=== PATIENT | female | born 2005 | race Two or more races ===

== ENCOUNTER 2023-02-02 09:36 | Emergency (ER) | payer OTHER, SELFPAY ==
--- NOTE | ~2023-02-02 | US_ITS ---
EXAMINATION: US PELVIS CLINICAL INFORMATION: Hydrosalpinx COMPARISON: CT abdomen pelvis 02/02/2023: In both the left and right adnexal region, there are tubular fluid attenuation structures, raising concern of bilateral hydrosalpinx TECHNIQUE: Ultrasound of the pelvis is performed using both transabdominal and transvaginal transducers along with Doppler. Transvaginal imaging is performed due to inadequate visualization transabdominally. FINDINGS: Uterus: The uterus is anteverted and measures 9.1 x 4.5 x 5.1 cm. The double wall endometrial thickness could not be accurately measured as an IUD is in place. The uterus is smooth in contour and has normal myometrial echogenicity. No visible fibroid. Adnexa: Both ovaries are visualized. There is normal color flow to the adnexa. There is no ovarian torsion. There is no pelvic ascites or fluid collection. Right ovary measures 3.6 x 2.8 x 2.2 cm for a volume of 11.6 mL. Left ovary measures 4.2 x 2.2 x 2.8 cm for a volume of 13.5 mL which includes a 1.8 x 1.8 x 1.7 cm corpus luteal cyst. No definite corresponding abnormality is seen to correspond with the findings on the CT scan. However, I believe that the hypoechoic structures may have just merely been the ovaries. US/US pelvic and transvaginal IMPRESSION: 1. IUD in place. 2. No pathologic abnormality is seen to correspond with the findings on the CT scan. However, I believe that the findings on the CT scan may have just merely been the ovaries.
--- NOTE | ~2023-02-02 | CT_ITS ---
EXAMINATION: CT ABDOMEN AND PELVIS WITH CONTRAST CLINICAL INFORMATION: Right lower quadrant tenderness COMPARISON: None available. TECHNIQUE: Multidetector volumetric images were obtained from the superior aspect of the liver through the pubic symphysis following administration 85 mL of Omnipaque 350 intravenous contrast. Sagittal and coronal reformatted images were obtained on the technologist's workstation. Oral contrast: No This CT examination was performed using dose optimization techniques as appropriate, variously including the following: *Automated exposure control *Adjustment of mA and/or kV according to patient size (this includes techniques or standardized protocols for targeted exams where dose is matched to indication/reason for exam; i.e. extremities or head) *Use of iterative reconstruction technique DLP: 597 mGy-cm FINDINGS: LUNG BASES: The visualized lung bases are unremarkable. LIVER, GALLBLADDER, AND BILIARY TREE: The liver is normal in size, shape, and attenuation. No focal hepatic lesion or biliary ductal dilatation is present. The gallbladder is unremarkable with no evidence of radiopaque gallstones, gallbladder wall thickening, or obvious pericholecystic inflammatory changes. PANCREAS: Unremarkable. SPLEEN: Unremarkable. ADRENAL GLANDS: Unremarkable. KIDNEYS AND URETERS: The kidneys are normal in size, shape, and attenuation. No hydronephrosis, hydroureter, or calculi seen. No perinephric stranding. 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 The aberrant vein contacts the posterior wall the appendix. BLADDER: Unremarkable. GASTROINTESTINAL TRACT: The small and large bowel are unremarkable. The appendix is unremarkable. ABDOMINAL WALL: No significant hernia is appreciated. LYMPH NODES: Normal. There is a small amount of free fluid in the cul-de-sac, most likely physiologic. VASCULAR: Unremarkable. PELVIC VISCERA: In both the left and right adnexal region, there are tubular fluid attenuation structures, raising concern of bilateral hydrosalpinx. There is an IUD within the uterus. A crenulated follicle is noted in the left adnexa. OSSEOUS STRUCTURES: Unremarkable. CT/CT abdomen pelvis w IV con IMPRESSION: 1. No CT evidence of acute appendicitis. 2. Bilateral pelvic adnexal tubular structures raising concern of bilateral hydrosalpinx. Given right lower quadrant pain and the presence of an IUD, this would be better assessed by pelvic and transvaginal ultrasound. 3. 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 Fleischner guidelines were followed.
[2023-02-02 09:41] VITALS: BP 125/66; PULSE 88; RESP 16; TEMP 36.6; O2SAT 99; BMI 28.7
--- NOTE | 2023-02-02 10:00 | PC.NURSE ---
patient a&ox3, c/o rt sided abd pain, swabs obtained, provider at bedside, call cosby within reach, will continue to monitor
--- NOTE | 2023-02-02 10:04 | ED.GENADULT ---
HPI - General Adult General Chief complaint: Upper Respiratory Symptoms Stated complaint: Abdominal pain Time Seen by Provider: 02/02/23 10:03 Source: patient and retail property manager Mode of arrival: ambulatory Limitations: language barrier History of Present Illness HPI narrative: Patient is a 17-year-old Irish-speaking female presenting to the emergency department with complaint of 4 days of sore throat, cough, yesterday woke with left eye redness and discharge, today developed right-sided abdominal pain. She denies fevers. Denies any nausea, vomiting, diarrhea, constipation. Denies urinary symptoms. Denies chest pain or shortness of breath. States cough is nonproductive. Has not taken any [id number] medications for her symptoms. Denies any concern for STIs, denies any abnormal vaginal discharge. MD complaint: abdominal pain Onset (ago): hour(s) Location: abdomen and right Radiation: non-radiation Severity: moderate Quality: sharp Pain Consistency: constant Associated symptoms: cough and other (sore throat, eye redness and discharge) Treatments prior to arrival: none Related Data Previous Rx's Medication Instructions Recorded doxycycline hyclate 100 mg capsule 100 mg PO BID 14 days #28 caps 02/02/23 erythromycin 5 mg/gram (0.5 %) eye 0.5 inch ophthalmic (eye) QID 5 02/02/23 ointment days #3.5 grams metronidazole 500 mg tablet 500 mg PO BID 14 days #28 tabs 02/02/23 Allergies Allergy/AdvReac Type Severity Reaction Status Date / Time No Known Allergies Allergy Verified 02/02/23 09:40 Review of Systems Review of Systems: As per HPI. Yes all other systems are reviewed and are negative Constitutional: Constitutional: Reports as per HPI [facility] Social History Social History Advance Directives: No Physical Exam ED Vital Signs: Vital Signs - 24 hr 02/02/23 09:41 Temperature 98 F Pulse Rate 88 Respiratory Rate 16 Blood Pressure 125/66 Pulse Oximetry 99 Oxygen Delivery Method Room Air BMI result Body Mass Index 28.7 Vital signs have been reviewed and appear to be correct. Blood pressure normal. Heart rate normal. Respiratory rate normal. Temperature normal. Oxygen saturation normal. Const General: cooperative, healthy appearing and no acute distress Orientation/consciousness: oriented to person, oriented to place, oriented to time and patient oriented x3 Limitations: no limitations HENMT Head: Yes normocephalic and Yes atraumatic Ears: external ears normal, TM's normal bilaterally and EAC's normal General nose exam: Normal external nose present Face and sinus: Yes face symmetric Mouth: oropharynx normal and moist mucous membranes Throat: Yes posterior oropharynx normal, Yes tonsils normal, Yes uvula midline and No uvular edema Eyes Conjunctivae: conjunctival abnormal left conjunctival injection diffuse and discharge other (watery) Pupils: Equal, round and reactive pupils present EOM: EOMs intact bilaterally Neck Neck: Yes normal visual inspection and Yes supple Lymphatic: no lymphadenopathy noted Resp Effort & Inspection: normal respiratory effort and able to speak in complete sentences Auscultation: clear to auscultation bilaterally Cardio Rate: regular rate Rhythm: regular rhythm Heart sounds: S1 normal heart sound present and S2 normal heart sound present GI Palpation (GI): Soft to palpation, Tenderness to palpation present (GI) in the RUQ, no guarding and No Rebound tenderness present Auscultation: normoactive bowel sounds Other: Exam chaperoned by BRIDGET Dang tech. General: Yes no CVA tenderness External Female Exam: normal external appearance Speculum Exam - Vagina: normal appearance of the vagina, abnormal vaginal discharge yellow, not erythematous and nontender Speculum Exam - Cervix: normal appearance of the cervix, Cervical os closed, Abnormal cervical discharge present yellow and nontender Bimanual exam- vagina & uterus: normal bimanual exam and No Cervical tenderness present Bimanual Exam- Adnexa, other: no tenderness Back/Spine/Pelvis Back: no CVA tenderness Skin General skin exam: elasticity normal and turgor normal Neuro General: oriented to person, oriented to place, oriented to time, patient oriented x3, moves all extremities, no focal motor deficits and CN's II-XI intact bilaterally Cranial nerves: Yes Equal, round and reactive pupils present Cognition (Neuro): normal cognition Extrem General: Yes full ROM, Yes no pedal edema and Yes no calf tenderness Psych Mental Status: mental status grossly normal Affect: normal affect Thought process: Normal thought process present Medications Administered Discontinued Medications Generic Name Dose Route Start Last Admin Trade Name Freq PRN Reason Stop Dose Admin Iohexol 85 ml 02/02/23 11:19 02/02/23 11:19 Iohexol 350 Mg/Ml 100 Ml Infus..Btl IV 02/02/23 11:20 85 ml ONCE ONE Administration Medical Decision Making Medical Decision Making MDM Narrative: Patient is a 17-year-old Irish-speaking female presenting to the emergency department with complaint of 4 days of sore throat, cough, yesterday woke with left eye redness and discharge, today developed right-sided abdominal pain. On exam patient is awake, A+Ox3, VS WNL, afebrile, normal neurological exam without focal deficits, physical exam findings as above. Given reported symptoms and physical exam findings, initial differential includes viral illness, COVID, flu, strep pharyngitis, appendicitis, ectopic, ovarian cyst, UTI, constipation, STI. Unlikely ovarian torsion or TOA. Will swab for COVID, flu, strep, obtain labs, UA, CT abdomen pelvis given right-sided tenderness. Labs notable for mild leukocytosis, mild anemia, no significant electrolyte abnormalities, negative HCG. Swabs for flu, COVID, strep all negative. CT notable for no evidence of appendicitis, bilateral pelvic adnexal tubular structures raising concern for bilateral hydrosalpinx. My interpretation is in agreement with the radiologist's interpretation. Will obtain transvaginal ultrasound, pelvic exam performed, swabs sent for CT NG, BV, trichomonas. U/S shows IUD in place, and no abnormality seen to correspond with CT findings. Radiologist feels findings on CT scan may have been ovaries. No evidence of infection on UA. CT NG pending. Given abnormal vaginal discharge and abdominal tenderness, will treat patient for PID at this time. Discussed with patient that cough, sore throat, and eye symptoms are likely related to viral infection but will prescribe erythromycin ointment for conjunctivitis. Will refer patient to Dr. Hernandez as patient states she does not have an OBGYN in the [place] as she recently moved here from [place]. All results discussed with patient all questions answered via retail property manager. Her return precautions discussed at bedside. Patient verbalized understanding of and agreement with plan. Differential Diagnosis Differential Diagnoses: The differential diagnosis associated with the presentation includes As per [facility]. Admission/Observation Consideration of admission/observation: Escalation of care including admission/observation considered Lab Data [facility] Lab Attestation statement: I reviewed the patient's lab results. As per MDM. 02/02/23 10:27 02/02/23 10:27 Labs: Lab Results 02/02/23 02/02/23 02/02/23 Range/Units 09:54 10:27 17:58 WBC 11.2 H (4.8-10.8) X10*3/uL RBC 5.17 (4.20-5.50) X10*6/uL Hgb 11.5 L (12.0-16.0) g/dl Hct 36.4 L (37.0-47.0) % MCV 70.4 L (80.0-98.0) fL MCH 22.2 L (27.0-33.0) pg MCHC 31.6 (31.0-35.0) g/dl RDW 15.5 (11.0-16.0) % Plt Count 250 (160-400) X10*3/uL MPV 9.8 (9.4-12.3) fL Immature Gran % (Auto) 0.3 (0.0-0.4) % Neut % (Auto) 73.4 H (45-73) % Lymph % (Auto) 17.2 L (20-40) % Peach % (Auto) 6.6 (2-11) % Eos % (Auto) 2.1 (0-4) % Baso % (Auto) 0.4 (0-2) % Lymph # (Auto) 1.9 (1.2-4.9) X10*3/uL Peach # (Auto) 0.7 (0.1-1.2) X10*3/uL Eos # (Auto) 0.2 (0.0-0.4) X10*3/uL Baso # (Auto) 0.0 (0.0-0.2) X10*3/uL Abs Immat Gran (auto) 0.03 (0.00-0.03) X10*3/uL Absolute Neuts (auto) 8.2 (2.0-8.3) x10*3/uL Absolute Nucleated RBC 0.000 (0.0-0.012) X10*3/uL Nucleated RBC % (auto) 0.0 (0.0-0.2) /100WBC Sodium 141 (135-145) mmol/L Potassium 3.6 (3.3-5.1) mmol/L Chloride 108 (96-108) mmol/L Carbon Dioxide 27 (22-29) mmol/L Anion Gap 10 L (12-20) BUN 8 L (9-16) mg/dL Creatinine 0.64 (0.5-1.4) mg/dL Estim Creat Clear Calc 131.6 Estimated GFR > 60 Random Glucose 91 (60-115) mg/dL Calcium 8.8 (8.4-10.2) mg/dL Total Bilirubin 0.6 (0.0-1.0) mg/dL AST 14 (5-31) U/L ALT 9 (0-31) U/L Alkaline Phosphatase 95 (39-117) U/L Total Protein 7.1 (6.5-8.0) g/dL Albumin 3.9 (3.5-5.0) g/dL Beta HCG, Quant < 2 mIU/mL Urine Color Yellow Urine Appearance Clear Urine pH 5.5 (5.0-9.0) Ur Specific [place] 1.020 (1.005-1.025) Urine Protein Negative (Neg-Trace) mg/dL Urine Glucose (UA) Negative (Negative) mg/dL Urine Ketones 80 (Negative) mg/dL Urine Blood Negative (Negative) Urine Nitrite Negative (Negative) Ur Leukocyte Esterase Negative (Negative) COVID-19 (FERNANDA) Negative (Negative) COVID-19 Clin Com See Note Influenza Type A (JESS) Negative (Negative) Influenza Type B (JESS) Negative (Negative) Influenza A & B Note See Note S. pyogenes GrpA JESS Negative (Negative) Independent Interpretation I performed an independent interpretation of an: Ultrasound and CT Scan Interpretation: No evidence of appendicitis on CT, bilat adnexal structures raising concern for hydrosalpinx U/S shows no abnormality to correspond with findings on CT scan, no evidence of torsion or TOA Radiology Impression Discussion of test interpretation with radiology: I have reviewed the radiologist's reading. Radiologist Impression: CT/CT abdomen pelvis w IV con IMPRESSION: 1. No CT evidence of acute appendicitis. 2. Bilateral pelvic adnexal tubular structures raising concern of bilateral hydrosalpinx. Given right lower quadrant pain and the presence of an IUD, this would be better assessed by pelvic and transvaginal ultrasound. 3. 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 Fleischner guidelines were followed. External Record Review External record reviewed: Inpatient record, Office record and Outpatient record Prescription Management I considered prescription management with: Antibiotic Critical Care Time Critical Care Time Critical Care Time: Yes Total Critical Care Time: 60 Attestation: I have personally provided critical care time exclusive of time spent on separately billable procedures. Time includes review of lab data, radiology results, discussion with consultants, and monitoring for potential decompensation. Intervention performed as documented. Discharge Plan Discharge Clinical Impression: Pelvic inflammatory disease, Viral infection Patient Disposition: Home, Self-Care Instructions: Pelvic Inflammatory Disease (DC), Viral Syndrome (ED) Additional Instructions: Lo evaluaron hoy en el departamento de emergencias por dolor abdominal, tos, dolor de garganta y enrojecimiento de los ojos. Es probable que la tos, el dolor de garganta y los s?ntomas est?n relacionados con landon infecci?n viral. Le est?n recetando un david?ento de eritromicina para el mitzi para la conjuntivitis. Est? recibiendo tratamiento por enfermedad inflamatoria p?lvica seg?n los resultados de paniagua examen p?lvico. Algunos resultados est?n pendientes, se le comunicar? cualquier resultado positivo. La derivar?n al Dr. Hernandez, que es obstetra y ginec?logo. Por favor llame a la oficina para programar landon kajal de seguimiento. Regrese al departamento de emergencias si presenta un dolor que empeora, v?mitos persistentes, fiebre de 100.4? F o m?s, o cualquier otro s?ntoma preocupante. Prescriptions: New erythromycin 5 mg/gram (0.5 %) ointment 0.5 inch ophthalmic (eye) QID 5 Days Qty: 3.5 0RF Rx Instructions: left eye doxycycline hyclate 100 mg capsule 100 mg PO BID 14 Days Qty: 28 0RF Rx Instructions: You were given the first dose in the ED metronidazole 500 mg tablet 500 mg PO BID 14 Days Qty: 28 0RF Rx Instructions: You were given the first dose in the ED today. Referrals: Devon Hernandez MD [Physician] - Print Language: Irish
[2023-02-02 10:24] LABS: IDNOW Serial# BCCEAD1C; Influenza A Negative (Negative); Influenza B2 Negative (Negative)
[2023-02-02 10:25] LABS: COVID-19 Test Negative (Negative); IDNOW Serial# 08D9AD1C
[2023-02-02 10:31] LABS: MANUAL DIFF FLAG NO
--- NOTE | 2023-02-02 10:32 | PC.NURSE ---
patient a&ox3, c/o rt abd pain, iv inserted, labs drawn, swabs obtained, pt to go for CT scan, call cosby within reach, will continue to monitor
[2023-02-02 10:35] LABS: Basophils Percent Auto 0.4 % (0-2); Eosinophils Absolute Auto 0.2 X10*3/uL (0.0-0.4); Eosinophils Percent Auto 2.1 % (0-4); Hematocrit 36.4 % (37.0-47.0); Hemoglobin 11.5 g/dl (12.0-16.0); Imm Gran Abs Auto 0.03 X10*3/uL (0.00-0.03); Imm Gran Pct Auto 0.3 % (0.0-0.4); Lymphocytes Absolute Auto 1.9 X10*3/uL (1.2-4.9); Lymphocytes Percent Auto 17.2 % (20-40); Mean Corpuscular HGB Conc 31.6 g/dl (31.0-35.0); Mean Corpuscular Hemoglobin 22.2 pg (27.0-33.0); Mean Corpuscular Volume 70.4 fL (80.0-98.0); Mean Platelet Volume 9.8 fL (9.4-12.3); Monocytes Absolute Auto 0.7 X10*3/uL (0.1-1.2); Monocytes Percent Auto 6.6 % (2-11); Neutrophils Absolute Auto 8.2 x10*3/uL (2.0-8.3); Neutrophils Percent Auto 73.4 % (45-73); Platelet Count 250 X10*3/uL (160-400); Red Blood Count 5.17 X10*6/uL (4.20-5.50); Red Cell Distribution Width 15.5 % (11.0-16.0); White Blood Count 11.2 X10*3/uL (4.8-10.8)
[2023-02-02 10:40] LABS: IDNOW Serial# 08D9AD1C; Strep A Nucleic Acid Negative (Negative)
[2023-02-02 10:53] LABS: Alanine Aminotransferase 9 U/L (0-31); Albumin Level 3.9 g/dL (3.5-5.0); Alkaline Phosphatase 95 U/L (39-117); Anion Gap 10 (12-20); Aspartate Amino Transferase 14 U/L (5-31); Bilirubin Total 0.6 mg/dL (0.0-1.0); Blood Urea Nitrogen 8 mg/dL (9-16); Calcium 8.8 mg/dL (8.4-10.2); Carbon Dioxide 27 mmol/L (22-29); Chloride 108 mmol/L (96-108); Creatinine Clr Calc Pharmacy 131.6; Estimated Glomerular Filt Rate > 60; Glucose Random 91 mg/dL (60-115); Potassium 3.6 mmol/L (3.3-5.1); Sodium 141 mmol/L (135-145); Total Protein 7.1 g/dL (6.5-8.0)
[2023-02-02 10:56] LABS: HCG Quantitative < 2 mIU/mL
[2023-02-02] MEDS: iohexoL 350 MG/ML 100 ML INFUS..BTL 85 ML IV (11:19)
[2023-02-02 18:07] LABS: Appearance Urine Clear; Color Urine Yellow; Glucose Urine UA Negative (Negative); Leukocyte Esterase Urine Negative (Negative); Nitrite Urine Negative (Negative); PH 5.5 (5.0-9.0); Urine Blood Negative (Negative); Urine Ketones 80 mg/dL (Negative); Urine Protein Negative (Neg-Trace)
[2023-02-02 18:37] VITALS: RESP 15
[2023-02-02] MEDS: metroNIDAZOLE 500 MG TABLET PO (18:46)
[2023-02-02] MEDS: Doxycycline Monohydrate 100 MG CAPSULE PO (18:46)
[2023-02-02] MEDS: cefTRIAXone sodium 500 MG VIAL IM (18:46)
[2023-02-03 11:05] LABS: CT PCR NOT DETECTED (Not Detect.); NG PCR NOT DETECTED (Not Detect.)
[2023-02-03 13:13] LABS: BV Int Neg Control Negative (Negative); BV Int Pos Control Positive (Positive)
== END 2023-02-02 18:51 | disposition home or self-care (01) ==
PROVIDERS: Registered Nurse Emergency; Emergency Provider Student in an Organized Health Care Education/Training Program
DX: N73.9 Female pelvic inflammatory disease, unspecified (principal); B34.9 Viral infection, unspecified; J02.9 Acute pharyngitis, unspecified; R05.9 Cough, unspecified; Z11.52 Encounter for screening for COVID-19
CPT/HCPCS: 0353U; 36415; 74177; 76830; 76856; 80053; 81003; 84702; 85025; 87480; 87491; 87502; 87510; 87591; 87635; 87651; 87660; 96372; 99284; J0696; Q9967